=== PATIENT | female | born 1955 | race Caucasian/White ===

== ENCOUNTER 2020-04-12 08:50 | Emergency (ER) | payer OTHER ==
[~2020-04-12] VITALS: Ht 160 cm; Wt 63.5 kg
[2020-04-12] MEDS ORDERED: PROZAC20 MG PO (09:08)
[2020-04-12] MEDS ORDERED: CRUTCH2 XX (10:38)
[2020-04-12] MEDS ORDERED: Norco 5-325 Ta1 EACH PO (10:39)
[2020-04-12] MEDS ORDERED: Aspirin EC81 MG PO (10:39)
== END 2020-04-12 11:30 | disposition home or self-care (01) ==
LOC: ER 08:50
DX: S82.302A Unspecified fracture of lower end of left tibia, initial encounter for closed fracture (principal); S82.832A Other fracture of upper and lower end of left fibula, initial encounter for closed fracture; W01.0XXA Fall on same level from slipping, tripping and stumbling without subsequent striking against object, initial encounter
CPT/HCPCS: 29515; 73610; 73700; 96372-59; 99284-25; J1170

== ENCOUNTER 2020-09-23 08:56 | Day surgery (SDC) | payer OTHER ==
[~2020-09-23] VITALS: Ht 160 cm; Wt 64.4 kg
[~2020-09-23 08:56] MED LIST: Aspirin EC81 MG PO; CRUTCH2 XX; Norco 5-325 Ta1 EACH PO; PROZAC20 MG PO
[2020-09-23] MEDS ORDERED: Ocuvite Preser1 EACH (09:11)
[2020-09-23] MEDS ORDERED: Calcium Acetat667 MG (09:11)
--- NOTE | 2020-09-23 09:30 | NUR ---
09/23/20 0930 Radhika Syed 1 TRY LEFT HAND VALVE IN WAY CML
== END 2020-09-23 23:59 | disposition home or self-care (01) ==
LOC: ORSCSDS 08:56
PROVIDERS: Student in an Organized Health Care Education/Training Program
PROC: 0DBP8ZX Excision of Rectum, Via Natural or Artificial Opening Endoscopic, Diagnostic (ICD-10-PCS; principal; 2020-09-23 10:15)
PROC: 0DBH8ZX Excision of Cecum, Via Natural or Artificial Opening Endoscopic, Diagnostic (ICD-10-PCS; principal; 2020-09-23 10:15)
PROC: 0DBK8ZX Excision of Ascending Colon, Via Natural or Artificial Opening Endoscopic, Diagnostic (ICD-10-PCS; principal; 2020-09-23 10:15)
DX: Z12.11 Encounter for screening for malignant neoplasm of colon (principal); D12.8 Benign neoplasm of rectum; D12.0 Benign neoplasm of cecum; D12.2 Benign neoplasm of ascending colon; F32.9 Major depressive disorder, single episode, unspecified; Z87.891 Personal history of nicotine dependence; Z79.899 Other long term (current) drug therapy
CPT/HCPCS: J2704; J7120

== ENCOUNTER → 2022-05-28 | Outpatient (CLI) | payer OTHER ==
[~2022-05-28] MED LIST changes: +Calcium Acetat667 MG; +Ocuvite Preser1 EACH
[2022-05-29 15:11] LABS: HPV 16 Negative (Negative); HPV 18 Negative (Negative); HPV OTHER HR TYPES Negative (Negative)
== END | disposition home or self-care (01) ==
LOC: LAB SHORT 15:15 → LAB 15:15
PROVIDERS: Obstetrics & Gynecology
DX: Z12.4 Encounter for screening for malignant neoplasm of cervix (principal)
CPT/HCPCS: 87624; G0123

== ENCOUNTER 2025-06-18 08:52 | Day surgery (SDC) | payer OTHER ==
[~2025-06-18] VITALS: Ht 160 cm; Wt 68.5 kg
[2025-06-18 11:10] VITALS: BP 96/50
== END 2025-06-18 11:12 | disposition home or self-care (01) ==
LOC: ORSCSDS 08:52
PROVIDERS: Specialist
PROC: 0DBP8ZX Excision of Rectum, Via Natural or Artificial Opening Endoscopic, Diagnostic (ICD-10-PCS; principal; 2025-06-18 10:15)
DX: Z12.11 Encounter for screening for malignant neoplasm of colon (principal); D12.8 Benign neoplasm of rectum; K64.8 Other hemorrhoids; Z86.0101 Personal history of adenomatous and serrated colon polyps; Z83.719 Family history of colon polyps, unspecified
CPT/HCPCS: 88305; J2704; J7120